=== PATIENT | female | born 1955 | race Caucasian/White ===

== ENCOUNTER 2020-06-26 17:36 | Emergency (ER) | payer MEDICARE ==
[2020-06-26 18:52] LABS: HEMOGLOBIN 12.3 gm/dl (12.3-15.3); RED BLOOD COUNT 4.08 M/UL (4.00-5.10); WHITE BLOOD COUNT 3.9 K/UL (4.5-11.0)
[2020-06-26 19:10] LABS: BUN/CREATININE RATIO 12 (0-10)
[2020-06-26] MEDS ORDERED: MYCOSTATIN CREA15 GM TOP (21:51)
== END 2020-06-26 21:52 | disposition home or self-care (01) ==
LOC: ER1 17:36
PROVIDERS: Emergency Medicine
DX: Z23 Encounter for immunization (principal); U07.1 COVID-19; E11.9 Type 2 diabetes mellitus without complications; I10 Essential (primary) hypertension; F17.210 Nicotine dependence, cigarettes, uncomplicated
CPT/HCPCS: 71045; 80053; 82550; 82553; 83874; 84484; 85025; 93005; 99285; M0239

== ENCOUNTER → 2021-01-01 | Outpatient (CLI) | payer MEDICARE ==
[~2021-01-01] MED LIST: MYCOSTATIN CREA15 GM TOP
== END ==
LOC: EXRD 09:19 → EDBD 09:19
DX: M06.9 Rheumatoid arthritis, unspecified (principal); M65.30 Trigger finger, unspecified finger; M19.042 Primary osteoarthritis, left hand; M19.041 Primary osteoarthritis, right hand
CPT/HCPCS: 73130

== ENCOUNTER → 2021-02-26 | Outpatient (CLI) | payer MEDICARE | LOC: EDBD 12-31 09:00 → MAMO 12-31 09:00 | DX: Z12.31 Encounter for screening mammogram for malignant neoplasm of breast (principal) | CPT/HCPCS: 77063; 77067 ==

== ENCOUNTER → 2021-03-04 | Outpatient (CLI) | payer MEDICARE | LOC: KOH-I 12:01 | DX: J20.9 Acute bronchitis, unspecified (principal) | CPT/HCPCS: 71046 ==

== ENCOUNTER 2021-04-15 13:46 | Emergency (ER) | payer OTHER | END 2021-04-15 16:50 | disposition home or self-care (01) | LOC: ER1 13:46 | DX: S13.4XXA Sprain of ligaments of cervical spine, initial encounter (principal); I48.91 Unspecified atrial fibrillation; Z86.73 Personal history of transient ischemic attack (TIA), and cerebral infarction without residual deficits; V49.40XA Driver injured in collision with unspecified motor vehicles in traffic accident, initial encounter; Y92.410 Unspecified street and highway as the place of occurrence of the external cause | CPT/HCPCS: 70450; 70486; 71260; 72125; 96374; 99283; J2405; Q9967 ==

== ENCOUNTER → 2021-06-06 | Outpatient (CLI) | payer MEDICARE | LOC: KOH-I 13:52 | DX: M54.50 Low back pain, unspecified (principal); M47.816 Spondylosis without myelopathy or radiculopathy, lumbar region | CPT/HCPCS: 72070; 72100 ==

== ENCOUNTER → 2021-08-16 | Outpatient (CLI) | payer OTHER | LOC: KOH-I 08:25 → EDBD 08:30 | DX: M54.50 Low back pain, unspecified (principal) | CPT/HCPCS: 72192 ==

== ENCOUNTER → 2021-08-27 | Outpatient (CLI) | payer MEDICARE | LOC: MRI 15:06 | DX: M53.3 Sacrococcygeal disorders, not elsewhere classified (principal); G96.191 Perineural cyst | CPT/HCPCS: 72197; A9577 ==

== ENCOUNTER 2021-11-06 16:44 | Observation (INO) | payer MEDICARE ==
[~2021-11-06] VITALS: Ht 160 cm; Wt 87.5 kg
[2021-11-06 17:54] LABS: HEMOGLOBIN 12.4 gm/dl (12.3-15.3); RED BLOOD COUNT 3.94 M/UL (4.00-5.10); WHITE BLOOD COUNT 8.8 K/UL (4.5-11.0)
[2021-11-06 18:25] LABS: BUN/CREATININE RATIO 17 (0-10)
[2021-11-07] MEDS ORDERED: TRAMADOL HCL50 MG PO (13:01)
[2021-11-07] MEDS ORDERED: PROTONIX40 MG PO (13:03)
[2021-11-07] MEDS ORDERED: METHOTREXATE T2.5 MG PO (13:03)
[2021-11-07] MEDS ORDERED: ELIQUIS5 MG PO (13:04)
[2021-11-07] MEDS ORDERED: LEVOTHYROXINE88 MCG PO (13:04)
[2021-11-07] MEDS ORDERED: METFORMIN HCL500 MG PO (13:05)
[2021-11-07] MEDS ORDERED: METOPROLOL TART50 MG PO (13:06)
[2021-11-07] MEDS ORDERED: ZOCOR40 MG PO (13:07)
[2021-11-07] MEDS ORDERED: WELLBUTRIN XL300 MG PO (13:08)
[2021-11-07] MEDS ORDERED: GABAPENTIN600 MG PO (13:09)
[2021-11-07] MEDS ORDERED: FOLIC ACID1 MG PO (13:10)
[2021-11-07] MEDS ORDERED: MEGA BIOTIN10000 MCG PO (13:10)
[2021-11-07] MEDS ORDERED: B-121000 MCG PO (13:11)
[2021-11-07] MEDS ORDERED: PRESERVISION A1 EACH PO (13:11)
[2021-11-07] MEDS ORDERED: NITROGLYCERIN0.4 MG SL (18:21)
[2021-11-07] MEDS ORDERED: ISOSORBIDE MONO30 MG PO (18:21)
[2021-11-07] MEDS ORDERED: ASPIRIN EC81 MG PO (18:21)
== END 2021-11-07 19:04 | disposition home or self-care (01) ==
LOC: ER1 16:44 → M/S 21:12 → CDU 21:12 → M/S 21:12 → CDU 21:12 → M/S 11-07 08:28
PROVIDERS: Emergency Medicine; ADMIT Internal Medicine
DX: R07.89 Other chest pain (principal); I21.9 Acute myocardial infarction, unspecified; I10 Essential (primary) hypertension; I48.0 Paroxysmal atrial fibrillation; E11.9 Type 2 diabetes mellitus without complications; M06.9 Rheumatoid arthritis, unspecified; M32.9 Systemic lupus erythematosus, unspecified; E66.9 Obesity, unspecified; Z87.891 Personal history of nicotine dependence; Z86.73 Personal history of transient ischemic attack (TIA), and cerebral infarction without residual deficits; Z79.01 Long term (current) use of anticoagulants; Z79.84 Long term (current) use of oral hypoglycemic drugs; Z79.890 Hormone replacement therapy; Z79.899 Other long term (current) drug therapy; Z87.442 Personal history of urinary calculi; Z90.49 Acquired absence of other specified parts of digestive tract; Z90.710 Acquired absence of both cervix and uterus
CPT/HCPCS: ECHO; 71045; 78452; 80053; 80061; 82550; 82553; 82962; 84484; 85025; 93005; 93017; 93306; 99285; A9502; G0378; J2785

== ENCOUNTER → 2021-11-26 | Outpatient (CLI) | payer MEDICARE ==
[~2021-11-26] MED LIST changes: +ASPIRIN EC81 MG PO; +B-121000 MCG PO; +ELIQUIS5 MG PO; +FOLIC ACID1 MG PO; +GABAPENTIN600 MG PO; +ISOSORBIDE MONO30 MG PO; +LEVOTHYROXINE88 MCG PO; +MEGA BIOTIN10000 MCG PO; +METFORMIN HCL500 MG PO; +METHOTREXATE T2.5 MG PO; +METOPROLOL TART50 MG PO; +NITROGLYCERIN0.4 MG SL; +PRESERVISION A1 EACH PO; +PROTONIX40 MG PO; +TRAMADOL HCL50 MG PO; +WELLBUTRIN XL300 MG PO; +ZOCOR40 MG PO
== END ==
LOC: EDBD 08:58 → RAD 08:58
PROC: BQ111ZZ Fluoroscopy of Left Hip using Low Osmolar Contrast (ICD-10-PCS; principal; 2021-11-26)
DX: M25.552 Pain in left hip (principal)
CPT/HCPCS: 73722; A9577; Q9967